=== PATIENT | female | born 1995 | race Caucasian/White ===

== ENCOUNTER 2018-08-11 20:35 | Emergency (ER) | payer OTHER ==
[2018-08-11 21:04] VITALS: BP 156/94; PULSE 60; RESP 16; TEMP 98.5; O2SAT 100
--- NOTE | 2018-08-11 22:14 | ED PDOC ---
HPI: Female Pain Chief Complaint (Provider): Dysuria, blood in urine History Per: Patient History/Exam Limitations: no limitations Onset/Duration Of Symptoms: Hrs (Began today ) Quality Of Discomfort: Burning Associated Symptoms: denies: Fever, Chills, Nausea, Vomiting, Loss Of Appetite, Back Pain, Chest Pain, Constipation, Urinary Symptoms Additional Complaint(s): Pt reports similar in the past with UTI. Eating and drinking normally <Dayna Pradhan - Last Filed: 08/11/18 22:12> <Rosita Agarwal - Last Filed: 08/11/18 22:21> Time Seen by Provider: 08/11/18 21:33 Chief Complaint (Nursing): Female Genitourinary Past Medical History Reviewed: Historical Data, Nursing Documentation, Vital Signs Vital Signs: Last Vital Signs Temp 98.5 F 08/11/18 21:02 Pulse 60 08/11/18 21:02 Resp 16 08/11/18 21:02 BP 156/94 H 08/11/18 21:02 Pulse Ox 100 08/11/18 21:02 - Medical History PMH: No Chronic Diseases - Surgical History Surgical History: No Surg Hx - Family History Family History: States: No Known Family Hx - Living Arrangements Living Arrangements: With Family - Social History Current smoker - smoking cessation education provided: No <Dayna Pradhan - Last Filed: 08/11/18 22:12> Vital Signs: Last Vital Signs Temp 98.5 F 08/11/18 21:02 Pulse 60 08/11/18 21:02 Resp 16 08/11/18 21:02 BP 156/94 H 08/11/18 21:02 Pulse Ox 100 08/11/18 22:18 <Rosita Agarwal - Last Filed: 08/11/18 22:21> - Home Medications Home Medications: Ambulatory Orders Medication Instructions Recorded Ciprofloxacin [Cipro] 500 mg PO BID #10 tab 08/11/18 - Allergies Allergies/Adverse Reactions: Allergies Allergy/AdvReac Type Severity Reaction Status Date / Time No Known Allergies Allergy Verified 08/11/18 21:02 Review of Systems ROS Statement: Except As Marked, All Systems Reviewed And Found Negative Constitutional: Negative for: Fever, Chills Cardiovascular: Negative for: Chest Pain Gastrointestinal: Negative for: Nausea, Vomiting, Abdominal Pain Genitourinary Female: Positive for: Dysuria, Hematuria. Negative for: Vaginal Bleeding <Dayna Pradhan - Last Filed: 08/11/18 22:12> Physical Exam - Reviewed Nursing Documentation Reviewed: Yes Vital Signs Reviewed: Yes - Physical Exam Appears: Positive for: Well, Non-toxic, No Acute Distress Head Exam: Positive for: ATRAUMATIC, NORMAL INSPECTION, NORMOCEPHALIC Skin: Positive for: Normal Color, Warm, DRY Eye Exam: Positive for: Normal appearance ENT: Positive for: Normal ENT Inspection Neck: Positive for: Normal, Painless ROM Cardiovascular/Chest: Positive for: Regular Rate, Rhythm Respiratory: Positive for: CNT, Normal Breath Sounds Gastrointestinal/Abdominal: Positive for: Normal Exam, Soft. Negative for: Tenderness Back: Positive for: Normal Inspection. Negative for: L CVA Tenderness, R CVA Tenderness Extremity: Positive for: Normal ROM Neurologic/Psych: Positive for: Alert, Oriented <Dayna Pradhan - Last Filed: 08/11/18 22:12> - ECG O2 Sat by Pulse Oximetry: 100 <Dayna Pradhan - Last Filed: 08/11/18 22:12> Medical Decision Making Medical Decision Making: (+) leuks and blood on dip <Dayna Pradhan Pop - Last Filed: 08/11/18 22:12> Disposition - Patient ED Disposition Is Patient to be Admitted: No Counseled Patient/Family Regarding: Diagnosis, Need For Followup, Rx Given - Disposition Disposition: Routine/Home Disposition Time: 22:14 <Dayna Pradhan - Last Filed: 08/11/18 22:12> <Rosita Agarwal J - Last Filed: 08/11/18 22:21> - Clinical Impression Clinical Impression: Urinary tract infection - Disposition Referrals: Blair Ro MD [Staff Provider] - Condition: STABLE Prescriptions: Ciprofloxacin [Cipro] 500 mg PO BID #10 tab Instructions: Urinary Tract Infections in Adults Forms: [facility] (Czech) - PA / [employer] / Resident Statement MD/DO has reviewed & agrees with the documentation as recorded. <Rosita Agarwal - Last Filed: 08/11/18 22:21>
== END 2018-08-11 23:10 | disposition home or self-care (01) ==
LOC: H.ER 20:35
DX: N39.0 Urinary tract infection, site not specified (principal)